=== PATIENT | male | born 1955 ===

== ENCOUNTER 2021-11-23 00:12 | Inpatient (IN) ==
[2021-11-23] MEDS ORDERED: GLUCAGON 1 MG VIAL IM PRN (01:41)
[2021-11-23] MEDS ORDERED: ONDANSETRON 4 MG/2 ML VIAL IV PRN (01:56)
[2021-11-23] MEDS ORDERED: hydrALAZINE 20 MG/1 ML VIAL IV PRN (01:56)
[2021-11-23] MEDS ORDERED: ACETAMINOPHEN 325 MG TABLET PO PRN (01:56)
[2021-11-23] MEDS ORDERED: ALUMINUM/MAGNES/SIMETH MAX STR 30 ML UDCUP PO PRN (01:56)
[2021-11-23] MEDS ORDERED: SODIUM CHLORIDE 0.45% 1,000 ML IV SCH (02:00)
[2021-11-23 02:45] LABS: Basophils # 0.1 10*3/uL (0.0-0.2); Basophils % 0.3 % (0.0-0.8); Eosinophils % 0.1 % (0.00-10.9); Hematocrit 43.7 VOL% (42.0-52.0); Hemoglobin 13.9 GM/DL (14.0-18.0); Immature Granulocytes % 0.6 %; Immature Granulocytes Absolute 0.11 #; Lymphocytes # 0.7 10*3/uL (1.4-4.0); Lymphocytes % 3.9 % (21.2-54.2); Mean Corpuscular HGB Conc 31.8 GM/DL (32-36); Mean Corpuscular Volume 88.8 FL (87-102); Mean Platelet Volume 11.1 FL (9.6-12.0); Monocytes # 1.5 10*3/uL (0.11-0.8); Monocytes % 8.6 % (1.7-12.7); Neutrophils % 86.5 % (38.7-73.9); Platelet Count 177 T/CUMM (130-400); Red Blood Count 4.92 MC/CUMM (3.8-5.5); Red Cell Distribution Width 14.1 % (9.3-17.3); White Blood Count 17.9 T/CUMM (4-12)
[2021-11-23 03:02] LABS: Arterial Base Excess iSTAT -1 MMOL/L (-2.5-2.5); Arterial Bicarbonate iSTAT 25.3 MMOL/L (20-26); Arterial O2 Saturation iSTAT 84 % (95-100); Arterial PCO2 iSTAT 45 MM HG (35-48); Arterial PO2 iSTAT 51 MM HG (80-95); Arterial Total CO2 iSTAT 27 MMO/L (23-27); Arterial pH iSTAT 7.356 (7.35-7.45)
[2021-11-23 03:07] LABS: Risk Ratio 3.97; VLDL Cholesterol 26.4 MG/DL
[2021-11-23] MEDS ORDERED: FUROSEMIDE 40 MG/4 ML VIAL IV ONE (03:08)
[2021-11-23 03:12] LABS: Calcium 9.1 MG/DL (8.5-10.1); Osmolality,Calculated 270.2 MOS/KG (273-304); Potassium 5.3 MMOL/L (3.5-5.1)
[2021-11-23] MEDS ORDERED: MORPHINE 2 MG/1 ML SYRINGE IV PRN (03:17)
[2021-11-23 03:37] LABS: Lymphocytes 5 % (20-55); Platelet Estimate Adequate; Total Cells Counted 100
[2021-11-23] MEDS ORDERED: DEXTROSE 10% 250 ML BAG IV PRN (03:41)
[2021-11-23] MEDS: LEVALBUTEROL 1.25 MG/3 ML NEB RESP TX SCH ×4 (04:05→20:14)
[2021-11-23] MEDS: PIPERACILLIN/TAZOBACTAM 3,375 MG in SODIUM CHLORIDE 0.9% 100 ML IV SCH ×3 (05:55→21:04)
[2021-11-23] MEDS: methylPREDNISolone SOD SUC 125 MG/2 ML VIAL IV SCH ×2 (05:55→12:17)
[2021-11-23 06:32] LABS: Alanine Aminotransferase 29 U/L (16-61); Albumin 4.4 G/DL (3.4-5.0); Alkaline Phosphatase 115 U/L (45-117); Aspartate Amino Transferase 80 U/L (0-37); Bilirubin,Direct < 0.100 MG/DL (0.0-0.20); Bilirubin,Indirect 0.5 MG/DL (0.0-1.0); Total Protein 8.6 G/DL (6.4-8.2)
[2021-11-23] MEDS: DOCUSATE SODIUM 100 MG CAPSULE PO SCH ×2 (08:18→21:08)
[2021-11-23] MEDS: ENOXAPARIN 40 MG/0.4 ML SYRINGE SUBCUT SCH (08:19)
[2021-11-23] MEDS: PANTOPRAZOLE 40 MG VIAL IV SCH (08:26)
[2021-11-23] MEDS ORDERED: tiZANidine 4 MG TABLET PO SCH (22:00)
[2021-11-24] MEDS: LEVALBUTEROL 1.25 MG/3 ML NEB RESP TX SCH ×2 (00:41→07:07)
[2021-11-24] MEDS: PIPERACILLIN/TAZOBACTAM 3,375 MG in SODIUM CHLORIDE 0.9% 100 ML IV SCH ×2 (03:49→11:33)
[2021-11-24 05:55] LABS: Hematocrit 38.7 VOL% (42.0-52.0); Hemoglobin 12.2 GM/DL (14.0-18.0); Immature Granulocytes % 0.9 %; Immature Granulocytes Absolute 0.09 #; Lymphocytes # 0.7 10*3/uL (1.4-4.0); Lymphocytes % 6.5 % (21.2-54.2); Mean Corpuscular HGB Conc 31.5 GM/DL (32-36); Mean Corpuscular Volume 90.4 FL (87-102); Mean Platelet Volume 11.2 FL (9.6-12.0); Monocytes # 0.5 10*3/uL (0.11-0.8); Monocytes % 5.2 % (1.7-12.7); Neutrophils % 87.4 % (38.7-73.9); Platelet Count 233 T/CUMM (130-400); Red Blood Count 4.28 MC/CUMM (3.8-5.5); Red Cell Distribution Width 14.3 % (9.3-17.3); White Blood Count 10.2 T/CUMM (4-12)
[2021-11-24] MEDS: DOCUSATE SODIUM 100 MG CAPSULE PO SCH (08:41)
[2021-11-24] MEDS: PANTOPRAZOLE 40 MG VIAL IV SCH (08:42)
[2021-11-24] MEDS: ENOXAPARIN 40 MG/0.4 ML SYRINGE SUBCUT SCH (08:42)
[2021-11-24 12:02] VITALS: BP 120/53
[2021-11-25] MEDS ORDERED: methylPREDNISolone SOD SUC 40 MG/1 ML VIAL IV SCH
== END 2021-11-24 13:00 | disposition home or self-care (01) | DRG 445 ==
LOC: N.3E 01:27 → SUATTDRO 01:27
PROVIDERS: ADMIT Internal Medicine; ATTEND Internal Medicine